=== PATIENT | female | born 2000 | race Asian ===

== ENCOUNTER 2024-04-27 17:44 | Emergency (ER) | payer OTHER ==
[2024-04-27 17:52] VITALS: BP 119/76; PULSE 89; RESP 18; TEMP 97; BMI 31.9
== END 2024-04-27 18:30 | disposition home or self-care (01) ==
LOC: JERFT 17:44 → JER 17:44 → JERFT 18:30
DX: S61.432A Puncture wound without foreign body of left hand, initial encounter (principal); W46.0XXA Contact with hypodermic needle, initial encounter; Y99.0 Civilian activity done for income or pay
CPT/HCPCS: 99283-25